=== PATIENT | male | born 1985 | race African-American/Black ===

== ENCOUNTER 2018-10-19 20:07 | Emergency (ER) | payer OTHER ==
[~2018-10-19] VITALS: Ht 170.2 cm; Wt 72.6 kg
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
[2018-10-19] MEDS ORDERED: TDAP [DIPH/PERTUSSIS/TET] 0.5 ML VIAL IM ONE ×2 (21:00→21:01)
[2018-10-19] MEDS ORDERED: LIDOCAINE 1%-EPI 1:100,000 20 ML VIAL ONE (21:48)
[2018-10-19] MEDS ORDERED: LIDOCAINE 1%-EPI 1:100,000 20 ML VIAL TP ONE (22:00)
--- NOTE | 2018-10-19 22:14 | NUR ---
TAMMY REYNOLDS AT BEDSIDE FOR SUTURE APPLICATION
--- NOTE | 2018-10-19 22:58 | NUR ---
Patient discharged to home in stable condition. Written and verbal after care instructions given. Patient verbalizes understanding of instruction.
[2018-10-19 22:59] VITALS: BP 122/76
== END 2018-10-19 23:00 ==
LOC: ER 20:13
DX: S81.812A Laceration without foreign body, left lower leg, initial encounter (principal); S51.812A Laceration without foreign body of left forearm, initial encounter; S51.811A Laceration without foreign body of right forearm, initial encounter; R56.9 Unspecified convulsions; J45.909 Unspecified asthma, uncomplicated; F10.10 Alcohol abuse, uncomplicated; Y90.9 Presence of alcohol in blood, level not specified; Z02.89 Encounter for other administrative examinations; V49.9XXA Car occupant (driver) (passenger) injured in unspecified traffic accident, initial encounter; Y93.89 Activity, other specified; Y92.410 Unspecified street and highway as the place of occurrence of the external cause; Y99.8 Other external cause status
CPT/HCPCS: 12002; 90471; 90715; 99284; A6403; J3490